=== PATIENT | male | born 1940 | race Caucasian/White ===

== ENCOUNTER 2018-12-15 08:17 | Inpatient (IN) ==
[2018-12-15] MEDS ORDERED: AMPICILLIN/SULBACTAM 3,000 MG in SODIUM CHLORIDE 0.9% 100 ML IV STA (10:02)
[2018-12-15 10:11] LABS: Basophils % 0.2 % (0.0-0.8); Eosinophils # 0.2 10*3/uL (0.0-0.87); Eosinophils % 2.5 % (0.00-10.9); Hematocrit 40.2 VOL% (42.0-52.0); Hemoglobin 12.4 GM/DL (14.0-18.0); Immature Granulocytes % 0.5 %; Immature Granulocytes Absolute 0.04 #; Lymphocytes # 1.8 10*3/uL (1.4-4.0); Lymphocytes % 21.4 % (21.2-54.2); Mean Corpuscular HGB Conc 30.8 GM/DL (32-36); Mean Corpuscular Hemoglobin 29 PG (27-34); Mean Corpuscular Volume 93.9 FL (87-102); Mean Platelet Volume 10.2 FL (9.6-12.0); Monocytes # 0.7 10*3/uL (0.11-0.8); Monocytes % 8.6 % (1.7-12.7); Neutrophils # 5.7 10*3/uL (1.4-7.4); Neutrophils % 66.8 % (38.7-73.9); Platelet Count 230 T/CUMM (130-400); Red Blood Count 4.28 MC/CUMM (3.8-5.5); Red Cell Distribution Width 13.9 % (9.3-17.3); White Blood Count 8.5 T/CUMM (4-12)
[2018-12-15 10:33] LABS: Albumin 3.5 G/DL (3.4-5.0); Bilirubin,Total 0.6 MG/DL (0.2-1.0); Calcium 8.2 MG/DL (8.5-10.1); Osmolality,Calculated 285.3 MOS/KG (273-304); Total Protein 6.5 G/DL (6.4-8.3)
[2018-12-15 10:51] LABS: Amorphous Crystals,Urine Few /HPF (Few); Apearance,Urine Slightly Hazy (Clear); Bilirubin,Urine Negative (Negative); Blood, Urine Large mg/dL (Negative); Glucose,Urine (UA) Negative (Negative); Hyaline Casts,Urine 15 /LPF (0-3); Ketones,Urine Negative (Negative); Mucus,Urine Occasional /LPF (Occasional); Nitrite,Urine Negative (Negative); Protein,Urine 30 MG/DL; RBC,Urine 233 /HPF (0-4); Squamous Epithelial Cell,Urine Occasional /HPF (0-10); Urine Color Amber (Yellow); Urine Specific Gravity 1.027 (1.001-1.035); WBC,Urine 29 /HPF (0-6)
[2018-12-15] MEDS ORDERED: HYDROmorphone 2 MG/1 ML VIAL IV PRN (11:08)
[2018-12-15] MEDS ORDERED: BISACODYL 5 MG TABLET PO PRN (11:08)
[2018-12-15] MEDS ORDERED: ALBUTEROL/IPRATROPIUM 3 ML NEB RESP TX PRN (11:08)
[2018-12-15] MEDS ORDERED: ACETAMINOPHEN 325 MG TABLET PO PRN (11:08)
[2018-12-15] MEDS ORDERED: ONDANSETRON 4 MG/2 ML VIAL IV PRN (11:08)
[2018-12-15] MEDS ORDERED: KETOROLAC 10 MG TABLET PO PRN (11:08)
[2018-12-15] MEDS ORDERED: ALBUTEROL/IPRATROPIUM 3 ML NEB RESP TX SCH (13:00)
[2018-12-15 13:03] LABS: Hepatitis A Ab IgM Quant 0.13 Index; Hepatitis A Ab IgM Result Negative (Negative); Hepatitis B Core IgM Quant 0.14 Index; Hepatitis B Core IgM Result Negative (Negative); Hepatitis B Surface Ag Quant < 0.10 Index; Hepatitis B Surface Ag Result Negative (Negative); Hepatitis C Virus Ab Quant < 0.02 Index; Hepatitis C Virus Ab Result Negative (Negative)
[2018-12-15 14:10] VITALS: BP 165/91
[2018-12-15] MEDS ORDERED: cefOXitin 2,000 MG in SYRINGE 1 EACH IV SCH (17:00)
[2018-12-16] MEDS ORDERED: FINASTERIDE 5 MG TABLET PO SCH (09:00)
[2018-12-16] MEDS ORDERED: PANTOPRAZOLE 40 MG TABLET PO SCH (09:00)
== END 2018-12-15 14:44 | disposition home or self-care (01) | DRG 446 ==
LOC: N.ED 08:17 → N.EDINP 11:08 → N.3E 14:11
PROVIDERS: ADMIT Surgery; ATTEND Surgery